=== PATIENT | male | born 1940 | race Hispanic/Latino ===

== ENCOUNTER → 2024-06-24 | Outpatient (CLI) | payer OTHER ==
[~2024-06-24] MED LIST: ASPI-1005 PO; DUTA1CPM4 PO; ENAL2.5T71 PO
[2024-06-24 16:35] LABS: CREATININE 1.5 mg/dL (0.5-1.3); POTASSIUM 4.3 mmol/L (3.5-5.1)
== END | disposition home or self-care (01) ==
LOC: LAB 13:54
PROVIDERS: ATTEND Internal Medicine Cardiovascular Disease
DX: I10 Essential (primary) hypertension (principal)
CPT/HCPCS: 36415; 80048

== ENCOUNTER → 2024-07-01 | Outpatient (CLI) | payer OTHER ==
[~2024-07-01] MED LIST changes: +IOHEXOL 350 MG/ML 100ML INFUS..BTL IV ONE
--- NOTE | 2024-07-01 15:26 | HMCIMG ---
CT ANGIO ABD/PEL PRE AAA 3MM REASON: PARARENAL AAA COMPARISON: 12/20/2015 TECHNIQUE: Axial images are obtained from lung bases to the upper thighs before and during bolus IV contrast infusion, 100 cc Omnipaque 350. 2-D and 3-D reconstruction images were performed. FINDINGS: There is an aortic stent graft in place. Graft appears widely patent. [place] aorta measures 4.7 x 4.7 cm axial dimension, there is no evidence of endoleak, the [place] aorta size appears little changed compared to prior exam. Renal and mesenteric artery origins are widely patent. Common and external iliac arteries appear patent as do both common femoral arteries. There is a cyst in the right lobe of the liver, visualized portions appear otherwise unremarkable. 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 Visualized bowel loops appear unremarkable. There is no retroperitoneal or pelvic lymphadenopathy. Pelvic soft tissues appear normal with the exception of the prostate which is enlarged at 4.7 x 5.8 cm. Anterior abdominal wall appears unremarkable. There are no focal osseous lesions. IMPRESSION: 1. Aortic stent graft in place, widely patent, no evidence of endoleak, the size of the thrombosed [place] aorta is unchanged compared to prior exam in 2016
== END | disposition home or self-care (01) ==
LOC: RAH 10:45
PROVIDERS: ATTEND Internal Medicine Cardiovascular Disease
DX: K76.89 Other specified diseases of liver (principal); I74.10 Embolism and thrombosis of unspecified parts of aorta; N40.0 Benign prostatic hyperplasia without lower urinary tract symptoms; I71.41 Pararenal abdominal aortic aneurysm, without rupture
CPT/HCPCS: 74174; Q9967

== ENCOUNTER → 2024-08-04 | Outpatient (CLI) | payer OTHER ==
[~2024-08-04] MED LIST changes: -IOHEXOL 350 MG/ML 100ML INFUS..BTL IV ONE
[2024-08-04] MEDS: REGADENOSON 0.4 MG/5 ML PF SYG IVP ONE (10:26)
== END | disposition home or self-care (01) ==
LOC: SHCH 07:31
PROVIDERS: ATTEND Internal Medicine Cardiovascular Disease
DX: I25.10 Atherosclerotic heart disease of native coronary artery without angina pectoris (principal)
CPT/HCPCS: 78452; 93017; J2785; A9500 ×2